=== PATIENT | female | born 1990 | race African-American/Black ===

== ENCOUNTER 2017-10-24 11:51 | Emergency (ER) | payer SELFPAY ==
[~2017-10-24] VITALS: Ht 162.6 cm; Wt 74.0 kg
[~2017-10-24 11:51] MED LIST: AUGM875T PO
[2017-10-24 11:53] VITALS: BP 133/88; PULSE 84; RESP 16; TEMP 98.2; O2SAT 100
[2017-10-24 12:27] LABS: BILIRUBIN, URINE NEG (NEG); BLOOD, URINE LARGE (NEG); GLUCOSE,URINE NEG (NEG); KETONE, URINE NEG (NEG); NITRITE,URINE NEG (NEG); PH, URINE 6.5 (5.0-8.5); URINE COLOR YELLOW (YELLW/STRAW); URINE LEUKOCYTE ESTERASE MOD (NEG)
[2017-10-24 12:34] LABS: RBC, URINE INNUM /hpf (0-3)
[2017-10-24 12:35] LABS: BACTERIA, URINE FEW /hpf
[2017-10-24] MEDS ORDERED: BACT800T5 PO (12:45)
--- NOTE | 2017-10-24 12:45 | PD ---
HPI Chief Complaint: Complaint Time Seen by Provider: 12:27 Travel History International Travel<30 days: No Contact w/Intl Traveler<30days: No Traveled to known affect area: No History of Present Illness HPI This 27-year-old female is complaining of pain with urination and dark urine. She has had urinary tract infections in the past. She does not think she is . She has had a little bit of spotting. He is generally healthy. He does not have diabetes. The pain she is having occurs when she is urinating and is moderate. There has not been any flank pain. There is not been any fever PFSH Past Medical History Medical History: Denies Significant Hx Hx Anticoagulant Therapy: No Diabetes: No Diminished Hearing: No Tetanus Vaccination: Unknown Influenza Vaccination: Yes ?: Not LMP: 10/16/17 : 1 Miscarriage: 1 Past Surgical History Surgical History: No Previous Surgery Social History Alcohol Use: No Tobacco Use: No Substance Use: No Allergies-Medications (Allergen,Severity, Reaction): Coded Allergies: diphenhydramine (Unverified Allergy, Severe, 10/24/17) UNKNOWN OF REACTION ibuprofen (Unverified Allergy, Severe, 10/24/17) UNSURE OF REACTION Reported Meds & Prescriptions Reported Meds & Active Scripts Active No Active Prescriptions or Reported Medications Review of Systems Except as stated in HPI: all other systems reviewed are Neg General / Constitutional: No: Fever, Chills Cardiovascular: No: Chest Pain or Discomfort Genitourinary: Positive: Dysuria Physical Exam Narrative GENERAL: Well-developed female SKIN: Focused skin assessment warm/dry. HEAD: Atraumatic. Normocephalic. EYES: Pupils equal and round. No scleral icterus. No injection or drainage. ENT: No nasal bleeding or discharge. Mucous membranes pink and moist. NECK: Trachea midline. No JVD. GASTROINTESTINAL: Abdomen soft, non-tender, nondistended. Hepatic and splenic margins not palpable. There is no CVA tenderness MUSCULOSKELETAL: No obvious deformities. No clubbing. No cyanosis. No edema. NEUROLOGICAL: Awake and alert. No obvious cranial nerve deficits. Motor grossly within normal limits. Normal speech. PSYCHIATRIC: Appropriate mood and affect; insight and judgment normal. Data Data Last Documented VS Vital Signs Date Time Temp Pulse Resp B/P (MAP) Pulse Ox O2 Delivery O2 Flow Rate FiO2 10/24/17 12:05 16 10/24/17 11:53 98.2 84 133/88 (103) 100 Orders Orders Urinalysis - C+S If Indicated (10/24/17 12:16) Urine Culture (10/24/17 12:12) Ed Urine Pregnancytest Poc (10/24/17 12:40) Labs Laboratory Tests Test 10/24/17 12:12 Urine Collection Type CLEAN CATCH Urine Color YELLOW Urine Turbidity SL CLOUDY Urine pH 6.5 Urine Specific [place] 1.025 Urine Protein 100 mg/dL Urine Glucose (UA) NEG mg/dL Urine Ketones NEG mg/dL Urine Occult Blood LARGE Urine Nitrite NEG Urine Bilirubin NEG Urine Urobilinogen 0.2 MG/DL Urine Leukocyte Esterase MOD Urine RBC INNUM /hpf Urine WBC 50-99 /hpf Urine Squamous Epithelial Cells 6-8 /hpf Urine Bacteria FEW /hpf Microscopic Urinalysis Comment CULTURE INDICATED MDM Medical Decision Making Medical Screen Exam Complete: Yes Emergency Medical Condition: Yes Medical Record Reviewed: Yes Differential Diagnosis Differential includes UTI Narrative Course test is negative. Urinalysis does show urinary infection. She will be placed on Bactrim DS 1 twice daily 7 days Diagnosis Primary Impression: UTI (urinary tract infection) Scripts Sulfamethoxazole-Trimethoprim (Bactrim DS) 800-160 Mg Tab 1 TAB PO BID for Infection, #14 TAB 0 Refills Prov: Gómez Baca MD 10/24/17 Disposition: 01 DISCHARGE HOME Condition: Stable Gómez Baca MD Oct 24, 2017 12:45
[2017-10-24 12:53] VITALS: BP 121/71
== END 2017-10-24 12:58 | disposition home or self-care (01) ==
LOC: PHED 11:51
DX: N39.0 Urinary tract infection, site not specified (principal); B95.7 Other staphylococcus as the cause of diseases classified elsewhere
CPT/HCPCS: 81001; 84703; 86403; 87077; 87086; 87186; 99283